=== PATIENT | female | born 1985 | race Caucasian/White ===

== ENCOUNTER 2021-02-02 23:55 | Emergency (ER) | payer OTHER ==
[~2021-02-02] VITALS: Ht 157.5 cm; Wt 70.7 kg
--- NOTE | 2021-02-03 00:29 | NUR ---
CC OF RIGHT BREAST PAIN AND SWELLING, PT DIAGNOSED WITH MASTITIS EARLIER AND SYMPTOMS HAVE WORSEN. PT ALSO C/O LYMPH NODE SWELLING UNDERNEATH ARMPIT ON SAME SIDE. PT GIVEN KEFLEX ABX SCRIPT FROM EARLIER. PT STATES SHE ALSO "ZIT" ON NIPPLE THAT BURST WITH RED AND WHITE DISCHARGE.
[2021-02-03] MEDS ORDERED: ONDANSETRON 2MG/ML, 2ML ONE (00:57)
[2021-02-03] MEDS ORDERED: CEFTRIAXONE PMX 1GM/50ML 50 ML ONE (00:57)
[2021-02-03] MEDS ORDERED: MORPHINE SULFATE 4 MG/ML, 1ML ONE (00:58)
[2021-02-03] MEDS ORDERED: MORPHINE SULFATE 4 MG/ML, 1ML IVPush PRN (01:00)
[2021-02-03] MEDS ORDERED: SODIUM CHLORIDE FLUSH 10ML SYR IVF ONE (01:00)
[2021-02-03] MEDS ORDERED: SODIUM CHLORIDE 0.9% 1,000ML IVBOLUS ONE (01:00)
[2021-02-03] MEDS ORDERED: ONDANSETRON 2MG/ML, 2ML IVPush ONE (01:00)
[2021-02-03] MEDS ORDERED: CEFTRIAXONE PMX 1GM/50ML 50 ML IVPB ONE (01:00)
--- NOTE | 2021-02-03 01:10 | NUR ---
pt given breast pump to help relieve pain.
[2021-02-03] MEDS ORDERED: HYDROcodone/APAP 5/325 TABLET ONE (01:13)
[2021-02-03 01:19] LABS: ALANINE AMINOTRANSFERASE 60 U/L (12-78); ANION GAP 6 mmol/L (5-15); CALCIUM 8.5 mg/dL (8.5-10.1); CHLORIDE 107 mmol/L (98-107); CREATININE 0.73 mg/dL (0.55-1.02)
--- NOTE | 2021-02-03 01:20 | NUR ---
PT REFUSED MORPHINE AND ZOFRAN MEDICATION. ERP AWARE AND WILL ORDER ANOTHER TYPE.
[2021-02-03 01:21] LABS: ALKALINE PHOSPHATASE 69 U/L (45-117); BILIRUBIN,TOTAL 0.4 mg/dL (0.2-1.0)
[2021-02-03 01:28] LABS: BASOPHILS % (AUTO) 0 % (0-1); EOSINOPHILS % (AUTO) 0 % (1-7); LYMPHOCYTES % (AUTO) 19 % (22-44); MEAN CORPUSCULAR HEMOGLOBIN 30.1 pg (27.0-34.8); MEAN CORPUSCULAR HGB CONC 33.2 g/dL (32.4-35.8); MEAN PLATELET VOLUME 7.7 fL (7.4-10.4); MONOCYTES % (AUTO) 7 % (2-9); NEUTROPHILS % (AUTO) 74 % (42-75); PLATELET COUNT 157 x10^3/uL (130-400); RED BLOOD COUNT 4.23 x10^6/uL (3.82-5.3); RED CELL DISTRIBUTION WIDTH 13.3 % (9.6-15.2)
[2021-02-03 01:30] LABS: MD NO
[2021-02-03] MEDS ORDERED: HYDROcodone/APAP 5/325 TABLET PO ONE (01:30)
[2021-02-03 02:49] VITALS: BP 110/72
== END 2021-02-03 02:58 | disposition home or self-care (01) ==
LOC: ED 02-03 00:25
DX: N61.0 Mastitis without abscess (principal)
CPT/HCPCS: 36415; 80053; 83605; 84145; 85025; 87040; 96365; 96366; 99284; J0696; J7030